=== PATIENT | female | born 2000 | race Caucasian/White ===

== ENCOUNTER 2023-04-29 23:45 | Emergency (ER) | payer OTHER ==
[~2023-04-29] VITALS: Ht 167.6 cm; Wt 122.5 kg
--- NOTE | 2023-04-30 00:23 | NUR ---
BIBSISTER. R FOOT PAIN S/P SLIP & FALL - FOOT HYPEREXTENDED
--- NOTE | 2023-04-30 00:37 | NUR ---
DR. CABRERA AT BEDSIDE
--- NOTE | 2023-04-30 00:40 | NUR ---
XR AT BEDSIDE
--- NOTE | 2023-04-30 00:44 | NUR ---
X-RAY AT BEDSIDE
--- NOTE | 2023-04-30 00:59 | NUR ---
Patient discharged to home in stable condition. Written and verbal after care instructions given. Patient verbalizes understanding of instruction.
[2023-04-30 01:00] VITALS: BP 145/79; TEMP 98.1
== END 2023-04-30 01:00 | disposition home or self-care (01) ==
LOC: ER 23:55
DX: M79.671 Pain in right foot (principal)
CPT/HCPCS: 73630-TC